=== PATIENT | female | born 1970 | race Caucasian/White ===

== ENCOUNTER 2023-03-06 07:10 | Day surgery (SDC) | payer OTHER ==
[~2023-03-06 07:10] MED LIST: Sodium Chloride 0.9% 10 ML Syringe FLUSH PRN
[2023-03-06] MEDS ORDERED: Lidocaine 2% 5 ML SDV INJECT ONE (07:11)
[2023-03-06] MEDS ORDERED: Propofol 1,000 MG/100 ML SDV IV ONE (07:11)
[2023-03-06] MEDS: Lactated Ringers 1,000 ML IV SCH (07:50)
[2023-03-06] MEDS: Simethicone Drops 40 MG/0.6 ML 30 ML Bottle PO ONE (08:04)
[2023-03-06 08:13] VITALS: BP 102/77; PULSE 98
== END 2023-03-06 09:26 | disposition home or self-care (01) ==
LOC: FB.SDS 07:10
PROVIDERS: ATTEND Surgery
DX: Z12.11 Encounter for screening for malignant neoplasm of colon (principal); D12.6 Benign neoplasm of colon, unspecified; K62.1 Rectal polyp; I10 Essential (primary) hypertension; J45.909 Unspecified asthma, uncomplicated; F41.9 Anxiety disorder, unspecified; F17.210 Nicotine dependence, cigarettes, uncomplicated; E03.9 Hypothyroidism, unspecified; D64.9 Anemia, unspecified; Z85.038 Personal history of other malignant neoplasm of large intestine; Z88.6 Allergy status to analgesic agent; Z79.890 Hormone replacement therapy; Z79.899 Other long term (current) drug therapy
CPT/HCPCS: 00812; 88305; A9270-GY; J2704; J7120